=== PATIENT | female | born 1965 | race Caucasian/White ===

== ENCOUNTER 2020-03-03 06:57 | Outpatient (REF) | payer BC, SELFPAY ==
--- NOTE | 2020-03-03 07:20 | XR_ITS ---
EXAMINATION: XR CHEST CLINICAL INFORMATION: Cough COMPARISON: 04/08/2018 TECHNIQUE: 2 views of the chest were obtained. FINDINGS: Lungs are well-inflated and clear. Trachea is midline in position. No interstitial disease, consolidation or mass. No pleural effusion or pneumothorax. Cardiac silhouette and pulmonary vessels are normal in size. The mediastinum and yeison have normal contour. Mild levocurvature of the upper thoracic spine. Pectus excavatum. Otherwise, the visualized bones, and upper abdomen, are unremarkable. XR/XR chest 2V IMPRESSION: No evidence of pneumonia. No acute cardiopulmonary abnormality.
[2020-03-03 07:34] LABS: MANUAL DIFF FLAG NO
[2020-03-03 07:35] LABS: Basophils Absolute Auto 0.1 X10*3/uL (0.0-0.2); Basophils Percent Auto 0.7 % (0-2); Eosinophils Absolute Auto 0.1 X10*3/uL (0.0-0.4); Eosinophils Percent Auto 1.2 % (0-4); Hematocrit 41.3 % (37-47); Hemoglobin 13.2 g/dl (12.0-16.0); Imm Gran Abs Auto 0.05 X10*3/uL (0.00-0.03); Imm Gran Pct Auto 0.6 % (0.0-0.4); Lymphocytes Absolute Auto 1.5 X10*3/uL (1.2-4.9); Lymphocytes Percent Auto 16.8 % (20-40); Mean Corpuscular Hemoglobin 27.2 pg (27.0-33.0); Mean Corpuscular Volume 85.2 fL (80-98); Mean Platelet Volume 10.5 fL (9.4-12.3); Monocytes Absolute Auto 0.8 X10*3/uL (0.1-1.2); Monocytes Percent Auto 9.2 % (2-11); Neutrophils Absolute Auto 6.3 X10*3/uL (2.0-8.3); Neutrophils Percent Auto 71.5 % (45-73); Platelet Count 473 X10*3/uL (160-400); Red Blood Count 4.85 X10*6/uL (4.20-5.50); Red Cell Distribution Width 14.5 % (11.0-16.0); White Blood Count 8.8 X10*3/uL (4.8-10.8)
[2020-03-03 08:00] LABS: Alanine Aminotransferase 21 U/L (0-31); Albumin Level 4.6 g/dL (3.5-5.0); Alkaline Phosphatase 106 U/L (39-117); Anion Gap 16 (12-20); Aspartate Amino Transferase 21 U/L (5-31); Bilirubin Direct 0.2 mg/dL (0.0-0.5); Bilirubin Total 0.5 mg/dL (0.0-1.0); Blood Urea Nitrogen 18 mg/dL (9-16); Calcium 9.5 mg/dL (8.4-10.2); Carbon Dioxide 25 mmol/L (22-29); Chloride 104 mmol/L (96-108); Cholesterol 127 mg/dL; Estimated Glomerular Filt Rate 58; Glucose Fasting 157 mg/dL (60-99); HDL Cholesterol 40 mg/dL; LDL Cholesterol Calculated 64 mg/dl; Potassium 5.3 mmol/l (3.3-5.1); Sodium 140 mmol/L (135-145); Total Protein 7.4 g/dL (6.5-8.0); Triglycerides 119 mg/dL
== END 2020-03-03 06:58 | disposition home or self-care (01) ==
LOC: HO.LAB 06:57
DX: E78.5 Hyperlipidemia, unspecified (principal); R05 Cough; I10 Essential (primary) hypertension
CPT/HCPCS: 36415; 71046; 80053; 80061; 80076; 82248; 82306; 85025

== ENCOUNTER → 2021-04-15 15:29 | Outpatient (BNVA) | payer OTHER, SELFPAY | PROVIDERS: Visit Provider Surgery ==

== ENCOUNTER 2021-06-07 07:17 | Day surgery (SDC) | payer OTHER, SELFPAY ==
--- NOTE | 2021-06-06 10:13 | HO.ANESPROP2 ---
Documented by User: Monika Schwarz NP 06/06/21 10:13 HPI - Anesthesia Eval Consult details Narrative: 55yo F for Colonoscopy and upper Endoscopy, Possible Polypectomy PMFSH Active Problems Active Problems: All Active Problems (Updated 06/03/21 @ 16:12 by Beatriz Lincoln, RN) Unexplained weight loss (Acute) Family history of colon cancer (Acute) Colon cancer screening (Acute) Past Medical History Medical History (Updated 06/06/21 @ 10:13 by Monika Schwarz NP) CAD (coronary artery disease) Colon cancer screening DM type 2 (diabetes mellitus, type 2) Elevated cholesterol Family history of colon cancer History of depression HTN (hypertension) Hx of myocardial infarction Lupus Unexplained weight loss Surgical History Surgical History (Updated 06/03/21 @ 15:58 by Beatriz Lincoln, RN) H/O section History of breast biopsy History of colonoscopy History of eye surgery (~02/2020) History of heart artery stent Social History Social History (Updated 04/15/21 @ 15:47 by CHRISTINE Mark) Alcohol intake: current Alcohol intake frequency: holidays/special occasions only Patient Tobacco Use Status: Former Tobacco user Tobacco use type: Cigarette Smoked in Last 30 Days: No Use of substances other than those prescribed or required for medical reasons: Yes Are you DNR?: No Advance Directives: No Advance Directives Information Provided: Yes Recently lost weight without trying: Yes How much weight loss: 14-23 pounds Meds Allergies Allergy/AdvReac Type Severity Reaction Status Date / Time doxycycline [Doxycycline] AdvReac Unknown JITTERY Verified 06/03/21 16:00 Home Medications Medication Instructions Recorded Confirmed Last Taken Type aspirin 81 mg chewable tablet 1 tab PO DAILY 04/15/21 06/03/21 Unknown History atorvastatin 40 mg tablet 40 mg PO DAILY 04/15/21 06/03/21 Unknown History blood sugar diagnostic ([employer] #10 ea 04/15/21 04/15/21 Unknown History Verio test strips) carvedilol 12.5 mg tablet 12.5 mg PO BID 04/15/21 06/03/21 06/07/21 06:30 History isosorbide mononitrate 30 mg 30 mg PO DAILY 04/15/21 06/03/21 06/07/21 06:30 History tablet,extended release 24 hr lancets 30 gauge ([facility] #100 ea 04/15/21 04/15/21 Unknown History Plus Lancet) lisinopril 2.5 mg tablet 2.5 mg PO DAILY 04/15/21 06/03/21 Unknown History nicotine (polacrilex) 2 mg gum mg PO 04/15/21 04/15/21 Unknown History hydroxychloroquine 200 mg tablet 1 tab PO DAILY 06/03/21 06/03/21 Unknown History metformin 500 mg tablet 1 tab PO DAILY 06/03/21 06/03/21 Unknown History Exam Exam Date and Time: June 06, 2021 1013 Assessment and Plan Assessment Anesthesia Assessment: Chart Reviewed Documented by User: Catracho Mark MD 06/07/21 08:41 [facility] Past Medical History Medical History (Updated 06/06/21 @ 10:13 by Monika Schwarz NP) CAD (coronary artery disease) Colon cancer screening DM type 2 (diabetes mellitus, type 2) Elevated cholesterol Family history of colon cancer History of depression HTN (hypertension) Hx of myocardial infarction Lupus Unexplained weight loss Family History Family history of problems with anesthesia: No Surgical History Surgical History (Updated 06/03/21 @ 15:58 by Beatriz Lincoln RN) H/O section History of breast biopsy History of colonoscopy History of eye surgery (~02/2020) History of heart artery stent History of Problems with Anesthesia: No Social History Social History (Updated 04/15/21 @ 15:47 by CHRISTINE Mark) Alcohol intake: current Alcohol intake frequency: holidays/special occasions only Patient Tobacco Use Status: Former Tobacco user Tobacco use type: Cigarette Smoked in Last 30 Days: No Use of substances other than those prescribed or required for medical reasons: Yes Are you DNR?: No Advance Directives: No Advance Directives Information Provided: Yes Recently lost weight without trying: Yes How much weight loss: 14-23 pounds Meds Allergies Allergy/AdvReac Type Severity Reaction Status Date / Time doxycycline [Doxycycline] AdvReac Unknown JITTERY Verified 06/03/21 16:00 Home Medications Medication Instructions Recorded Confirmed Last Taken Type aspirin 81 mg chewable tablet 1 tab PO DAILY 04/15/21 06/03/21 Unknown History atorvastatin 40 mg tablet 40 mg PO DAILY 04/15/21 06/03/21 Unknown History [facility] 04/15/21 04/15/21 Unknown History Verio test strips) carvedilol 12.5 mg tablet 12.5 mg PO BID 04/15/21 06/03/21 06/07/21 06:30 History isosorbide mononitrate 30 mg 30 mg PO DAILY 04/15/21 06/03/21 06/07/21 06:30 History tablet,extended release 24 hr lancets 30 gauge (OneTouch [employer] #100 ea 04/15/21 04/15/21 Unknown History Plus Lancet) lisinopril 2.5 mg tablet 2.5 mg PO DAILY 04/15/21 06/03/21 Unknown History nicotine (polacrilex) 2 mg gum mg PO 04/15/21 04/15/21 Unknown History hydroxychloroquine 200 mg tablet 1 tab PO DAILY 06/03/21 06/03/21 Unknown History metformin 500 mg tablet 1 tab PO DAILY 06/03/21 06/03/21 Unknown History Exam Airway Mallampati Class: I TM Dist: >3cm Neck ROM: Full Loose/Missing/Broken Teeth: No Heart: ok. no chest pain in many years. Lungs: ok Assessment and Plan Final Anesthetic Review Family History of Problems with Anesthesia: No History of Problems with Anesthesia: No NPO: Yes ASA Class: IV Final Preanesthetic Review: No Changes in Pt Med Stat, Meds/Allgs Chart Reviewed, Consent Obtained/Reviewed and Anes Risks/Benef Reviewed Patient Risk: Intermediate Procedure Risk: Intermediate Anesthetic Plan Anesthetic Plan: MAC: and Agree w/ Assess. and Plan Disposition: Standard PACU
[2021-06-07 07:36] VITALS: BMI 18.8
[2021-06-07 07:49] VITALS: BP 99/67; PULSE 85; RESP 16; TEMP 37.1; O2SAT 96
[2021-06-07 07:55] LABS: Glucose, Whole Blood 154 mg/dL (60-115)
[2021-06-07] MEDS: Lactated Ringers 1,000 ML 100 ML IVCONT (08:02)
--- NOTE | 2021-06-07 08:14 | MHC.SHP ---
Pre-Procedural Eval Section A Date of Service: 06/07/21 Section B Chief Complaint: Screening Details of Present Illness: She is due; for screening colonoscopy also has complaints of unexplained weight loss and frequent nausea so referred for EGD as well Relevant Family History (Specify if Yes): No Relevant Social History: None Present Medications: see Short Stay Collaborative assessment Medical History: No relevant PMH Allergies: Allergies Allergy/AdvReac Type Severity Reaction Status Date / Time doxycycline [Doxycycline] AdvReac Unknown JITTERY Verified 06/03/21 16:00 Review of Systems Sugical H&P ROS: Negative: Constitution, Cardiovascular, Respiratory, Neurological, Psychiatric, Hem-Onc, Allergic/Immunologic, Gastrointestinal, Genitourinary, Musculoskeletal, Integumentary, Endocrine and Eyes/Ears/Nose/Throat Exam Surgical H&P Exam: Normal: HEENT, Normal: Heart, Normal: Lungs, Normal: Extremities, Normal: Abdomen, Normal: Skin and Normal: Neurological Plan Diagnosis/Plan: Unchanged I have reviewed the history and physical and performed a pertinent physical examination on my patient. No changes have occurred unless specified.
--- NOTE | 2021-06-07 09:37 | P.OP_ITS ---
Operative Note Operative Note Date of Service: 06/07/21 Narrative: Preop diagnosis: Colon cancer screening, frequent nausea, weight loss Postop diagnosis: 1. Diverticulosis of the sigmoid and left colon 2. Small polyps x3 at level 20 cm, each about 2 mm in size, with biopsy forceps 3. Normal EGD findings Procedure: EGD, copy with polypectomy using cold forceps x3 Surgeon: Endy Danielson MD Patient is a 55-year-old female referred for hi for EGD and colonoscopy. She was due for her colonoscopy as she had a history of polyps in the past. She also had complained of frequent nausea and explained weight loss so her primary care physician had wanted her to proceed with an EGD as well. She understood technique of both procedure. She was aware of the risks, benefits, and alternatives She was brought to the operating room. He was placed in left lateral decubitus position under monitored anesthesia care. A surgical time-out was done. A bite block was in position. I proceeded to insert the endoscope through the bite block into the oropharynx. The vocal cords were visualized. The esophageal slit was seen posterior to this. The esophageal slit was debated. The scope was advanced to the entire length of esophagus altered stomach. I intubated the pyloric orifice. I examined the duodenum up to the C-loop. I proceeded with the scope with careful examination of the duodenal mucosa being done with scope withdrawal. Lesion seen in the duodenum. The scope was brought back into the stomach. I examined the stomach mucosa. There were no lesions and there were no ulcers. I retro flexed the scope to visualize the cardia and hiatus and there were no lesions on this area as well. There was no significant hiatal hernia. I proceeded to withdraw the scope esophagus. There were no lesions in the ent mary esophageal mucosa. The scope was then withdrawn completely We then proceeded to do the colonoscopy. I inserted colonoscope through the anal orifice and advanced this gently with insufflation all the way to the cecum. The cecum was intubated. The cecum was identified by visualization of the ileocecal valve as well as the appendiceal orifice. The cecal mucosa was unremarkable. The scope was gradually withdrawn with careful examination of the entire colonic mucosa being done with scope withdrawal. The patient had adequate bowel prep so it was unlikely that any lesion may have been missed. There was note of scattered diverticuli in the sigmoid and left colon. At the level 20 cm, there were 3 small polyps that appeared hyperplastic.. Each of these were about 2 mm in size. These were removed using multiple bites of cold forceps. The rest of the distal rectum and anal canal when unremarkable. The anal shelf did not reveal any lesions. The scope was then withdrawn completely with desufflation. The patient tolerated procedure well. There were no complications noted. Will await for the path report as she may need to have another colonoscopy in 5 years.
[2021-06-07 09:43] VITALS: BP 91/48; PULSE 73; RESP 16; TEMP 36.3; O2SAT 97
[2021-06-07 09:58] VITALS: BP 112/67; PULSE 71; RESP 16; TEMP 36.3; O2SAT 97
== END 2021-06-07 10:40 | disposition home or self-care (01) ==
PROVIDERS: PCP Nurse Practitioner Family; Visit Provider Surgery
PROC: 0DJD8ZZ Inspection of Lower Intestinal Tract, Via Natural or Artificial Opening Endoscopic (ICD-10-PCS; CPT 45378; principal; 2021-06-07 09:00)
DX: Z12.11 Encounter for screening for malignant neoplasm of colon (principal); Z80.0 Family history of malignant neoplasm of digestive organs; K63.5 Polyp of colon; K57.30 Diverticulosis of large intestine without perforation or abscess without bleeding; R11.0 Nausea; R63.4 Abnormal weight loss; Z68.1 Body mass index [BMI] 19.9 or less, adult; I25.10 Atherosclerotic heart disease of native coronary artery without angina pectoris; Z98.61 Coronary angioplasty status; I10 Essential (primary) hypertension; E78.00 Pure hypercholesterolemia, unspecified; M32.9 Systemic lupus erythematosus, unspecified; E11.9 Type 2 diabetes mellitus without complications; Z79.84 Long term (current) use of oral hypoglycemic drugs; Z79.82 Long term (current) use of aspirin; Z79.899 Other long term (current) drug therapy; Z88.1 Allergy status to other antibiotic agents; Z87.891 Personal history of nicotine dependence
CPT/HCPCS: 45380; 43235; 82947; 88305; J2250; J3010

== ENCOUNTER → 2021-06-13 15:00 | Outpatient (BNVA) | payer OTHER, SELFPAY | PROVIDERS: PCP Nurse Practitioner Family; Visit Provider Surgery | DX: R11.10 Vomiting, unspecified (principal); R19.7 Diarrhea, unspecified; R63.4 Abnormal weight loss; Z12.11 Encounter for screening for malignant neoplasm of colon | CPT/HCPCS: 99212 ==